=== PATIENT | male | born 1950 | race Caucasian/White ===

== ENCOUNTER 2017-01-18 19:52 | Inpatient (IN) | payer MEDICARE, MEDICAID ==
[~2017-01-18] VITALS: Ht 172.7 cm; Wt 86.2 kg
[2017-01-18] MEDS ORDERED: NITROGLYCERIN OINT 1GM/INCH UDPKT TD STA (22:38)
[2017-01-18] MEDS ORDERED: ASPIRIN 81MG TABLET PO STA (22:38)
[2017-01-18 23:07] LABS: BASOPHILS % 1.1 % (0.0-2.0); EOSINOPHILS % 3.2 % (0.0-5.0); HEMATOCRIT. 38.9 % (42.0-52.0); LYMPHOCYTES % 28.1 % (20.0-50.0); MEAN CORPUSCULAR HEMOGLOBIN 30.5 pg (28.0-32.0); MEAN CORPUSCULAR HGB CONC 33.5 g/dL (31.0-37.0); MEAN CORPUSCULAR VOLUME 90.9 fL (80.0-94.0); MEAN PLATELET VOLUME 8.9 fl (7.4-10.4); NEUTROPHILS % 54.6 % (40.0-76.0); PLATELET 155 x1000/uL (130-400); RED BLOOD CELL COUNT 4.28 mill/uL (4.7-6.1); RED CELL DISTRIBUTION WIDTH 13.2 % (11.6-14.6); WHITE BLOOD COUNT 5.3 x1000/uL (4.5-11.0)
[2017-01-18 23:20] LABS: ANION GAP 13; CALCIUM 8.3 mg/dL (8.5-10.1); CARBON DIOXIDE 27 mEq/L (21-32); CHLORIDE 107 mEq/L (98-107); INDEX HEMOLYSI 1 (1-3); INDEX ICTERIC 1 (1-4); INDEX LIPEMIC 1 (1-3); NT PRO B-TYPE NATRIURETIC PEP 37 pg/mL (5-125); TROPONIN I < 0.02 ng/mL (0.00-0.04); UREA NITROGEN BLOOD 25 mg/dL (7-21); eGFR > 60 mL/min (>60)
[2017-01-18] MEDS ORDERED: DIPHENHYDRAMINE 25MG CAPSULE PO ONE (23:30)
[2017-01-19] MEDS ORDERED: CLONIDINE 0.1MG TABLET PO PRN (00:15)
[2017-01-19] MEDS ORDERED: DOCUSATE SODIUM 100MG CAPSULE PO PRN (00:15)
[2017-01-19] MEDS ORDERED: ONDANSETRON HCL 4MG/2ML VIAL IV PRN (00:15)
[2017-01-19] MEDS ORDERED: ACETAMINOPHEN 325MG TABLET PO PRN (00:15)
[2017-01-19] MEDS ORDERED: IPRATROPIUM/ALBUTEROL 0.5-3(2.5)MG/3ML NEB INH PRN (00:15)
[2017-01-19] MEDS ORDERED: MAGNESIUM/ALUMINUM HYDROXIDE/SIMETHICONE 30ML UDC PO PRN (00:15)
[2017-01-19 00:27] LABS: CLARITY URINE CLEAR (CLEAR); COLOR URINE YELLOW (YELLOW); GLUCOSE URINE NEGATIVE (NEGATIVE); KETONES URINE NEGATIVE (NEGATIVE); LEUKOCYTE ESTERASE URINE NEGATIVE (NEGATIVE); NITRITE URINE NEGATIVE (NEGATIVE); OCCULT BLOOD URINE NEGATIVE (NEGATIVE); PROTEIN URINE NEGATIVE (NEGATIVE)
[2017-01-19 00:39] LABS: CHLORIDE 109 mEq/L (98-107); INDEX HEMOLYSI 1 (1-3); INDEX ICTERIC 1 (1-4); INDEX LIPEMIC 1 (1-3)
[2017-01-19 00:45] LABS: ANION GAP 10; CALCIUM 8.3 mg/dL (8.5-10.1); CARBON DIOXIDE 27 mEq/L (21-32); MAGNESIUM 2.2 mg/dL (1.8-2.4); UREA NITROGEN BLOOD 24 mg/dL (7-21); eGFR > 60 mL/min (>60)
[2017-01-19 00:47] LABS: *AMPHETAMINES SCREEN URINE NEGATIVE (NEGATIVE); *BARBITURATES SCREEN URINE NEGATIVE (NEGATIVE); *BENZODIAZEPINES SCREEN URINE NEGATIVE (NEGATIVE); *COCAINE SCREEN URINE NEGATIVE (NEGATIVE); CANNABINOID URINE SCREEN NEGATIVE (NEGATIVE); ECSTASY MDMA SCREEN URINE NEGATIVE (NEGATIVE); METHADONE URINE SCREEN NEGATIVE (NEGATIVE); OPIATES URINE SCREEN NEGATIVE (NEGATIVE); PHENCYCLIDINE URINE SCREEN NEGATIVE (NEGATIVE)
[2017-01-19] MEDS ORDERED: LORAZEPAM 1MG TABLET PO ONE (03:45)
[2017-01-19 07:02] LABS: CREATINE KINASE MB FRACTION 2.3 ng/mL (0.5-3.6); THYROID STIMULATING HORMONE 2.6 uIU/mL (0.36-3.74)
[2017-01-19 08:00] VITALS: BP 106/62
[2017-01-19 08:15] VITALS: BP 129/81
[2017-01-19] MEDS ORDERED: LORAZEPAM 1MG TABLET PO PRN (08:15)
[2017-01-19] MEDS: ENOXAPARIN 40MG/0.4ML SYR SUBCUT SCH (09:10)
[2017-01-19] MEDS: ASPIRIN 81MG EC TABLET PO SCH (09:10)
[2017-01-19] MEDS ORDERED: DONE5TAB33 PO (10:55)
[2017-01-19] MEDS ORDERED: MIRT15TA6 PO (10:56)
[2017-01-19 12:00] VITALS: BP 125/79
[2017-01-19] MEDS: LORAZEPAM 2MG/ML CPJ IV PRN ×2 (12:36→16:42)
[2017-01-19] MEDS ORDERED: MEMA10TA11 PO (15:44)
[2017-01-19 16:00] VITALS: BP 108/76
[2017-01-19 16:56] LABS: CREATINE KINASE MB FRACTION 2.4 ng/mL (0.5-3.6)
[2017-01-19 20:00] VITALS: BP 110/75
[2017-01-19] MEDS: ATORVASTATIN CALCIUM 10MG TABLET PO SCH (20:22)
[2017-01-20] VITALS: BP 107/66
[2017-01-20 04:00] VITALS: BP 109/65
[2017-01-20 05:42] LABS: BASOPHILS % 0.7 % (0.0-2.0); EOSINOPHILS % 2.4 % (0.0-5.0); HEMATOCRIT. 41.5 % (42.0-52.0); LYMPHOCYTES % 20.1 % (20.0-50.0); MEAN CORPUSCULAR HEMOGLOBIN 30.2 pg (28.0-32.0); MEAN CORPUSCULAR HGB CONC 33.6 g/dL (31.0-37.0); MEAN CORPUSCULAR VOLUME 89.8 fL (80.0-94.0); MONOCYTES % 11.2 % (2.0-8.0); NEUTROPHILS % 65.6 % (40.0-76.0); PLATELET 157 x1000/uL (130-400); RED BLOOD CELL COUNT 4.62 mill/uL (4.7-6.1); WHITE BLOOD COUNT 6.8 x1000/uL (4.5-11.0)
[2017-01-20 06:25] LABS: ANION GAP 12; CARBON DIOXIDE 28 mEq/L (21-32); CHLORIDE 104 mEq/L (98-107); INDEX HEMOLYSI 1 (1-3); INDEX ICTERIC 1 (1-4); INDEX LIPEMIC 1 (1-3); UREA NITROGEN BLOOD 17 mg/dL (7-21); eGFR > 60 mL/min (>60)
[2017-01-20 07:28] VITALS: BP 111/63
[2017-01-20] MEDS: ENOXAPARIN 40MG/0.4ML SYR SUBCUT SCH (09:10)
[2017-01-20] MEDS: ASPIRIN 81MG EC TABLET PO SCH (09:10)
[2017-01-20] MEDS: MEMANTINE HCL 10MG TABLET PO SCH ×2 (09:10→16:54)
[2017-01-20] MEDS: MIRTAZAPINE 15MG TABLET PO SCH (09:11)
[2017-01-20] MEDS: DONEPEZIL HCL 5MG TABLET PO SCH (09:11)
[2017-01-20] MEDS: LORAZEPAM 2MG/ML CPJ IV PRN ×2 (09:11→16:54)
[2017-01-20 11:56] VITALS: BP 108/65
[2017-01-20 16:00] VITALS: BP 106/65
[2017-01-20] MEDS: HALOPERIDOL LACTATE 5MG/ML VIAL IM PRN (18:00)
[2017-01-20 20:00] VITALS: BP 103/65
[2017-01-20] MEDS: ATORVASTATIN CALCIUM 10MG TABLET PO SCH (20:50)
[2017-01-21] VITALS: BP 95/66
[2017-01-21 04:00] VITALS: BP 103/61
[2017-01-21 07:40] VITALS: BP 100/63
[2017-01-21] MEDS: DONEPEZIL HCL 5MG TABLET PO SCH (09:35)
[2017-01-21] MEDS: ENOXAPARIN 40MG/0.4ML SYR SUBCUT SCH (09:35)
[2017-01-21] MEDS: MIRTAZAPINE 15MG TABLET PO SCH (09:35)
[2017-01-21] MEDS: ASPIRIN 81MG EC TABLET PO SCH (09:36)
[2017-01-21] MEDS: MEMANTINE HCL 10MG TABLET PO SCH ×2 (09:37→16:41)
[2017-01-21 12:00] VITALS: BP 97/61
[2017-01-21] MEDS: LORAZEPAM 2MG/ML CPJ IV PRN ×2 (14:10→20:25)
[2017-01-21] MEDS: HALOPERIDOL LACTATE 5MG/ML VIAL IM PRN ×2 (15:28→23:57)
[2017-01-21 15:53] VITALS: BP 101/62
[2017-01-21 20:00] VITALS: BP 115/71
[2017-01-21] MEDS: ATORVASTATIN CALCIUM 10MG TABLET PO SCH (20:25)
[2017-01-22] VITALS: BP 101/64
[2017-01-22] MEDS: LORAZEPAM 2MG/ML CPJ IV PRN (02:13)
[2017-01-22 04:00] VITALS: BP 93/59
[2017-01-22 05:43] LABS: BASOPHILS % 0.7 % (0.0-2.0); EOSINOPHILS % 1.6 % (0.0-5.0); HEMATOCRIT. 37.3 % (42.0-52.0); HEMOGLOBIN. 12.9 g/dL (14.0-18.0); LYMPHOCYTES % 20.4 % (20.0-50.0); MEAN CORPUSCULAR HEMOGLOBIN 30.7 pg (28.0-32.0); MEAN CORPUSCULAR HGB CONC 34.5 g/dL (31.0-37.0); MEAN CORPUSCULAR VOLUME 88.9 fL (80.0-94.0); MEAN PLATELET VOLUME 8.8 fl (7.4-10.4); MONOCYTES % 10.7 % (2.0-8.0); NEUTROPHILS % 66.6 % (40.0-76.0); PLATELET 160 x1000/uL (130-400); RED CELL DISTRIBUTION WIDTH 13.1 % (11.6-14.6)
[2017-01-22 06:08] LABS: ANION GAP 10; CALCIUM 8.4 mg/dL (8.5-10.1); CARBON DIOXIDE 30 mEq/L (21-32); CHLORIDE 105 mEq/L (98-107); INDEX HEMOLYSI 1 (1-3); INDEX ICTERIC 1 (1-4); INDEX LIPEMIC 1 (1-3); UREA NITROGEN BLOOD 17 mg/dL (7-21); eGFR > 60 mL/min (>60)
[2017-01-22 07:50] VITALS: BP 89/56
[2017-01-22] MEDS: MIRTAZAPINE 15MG TABLET PO SCH (08:54)
[2017-01-22] MEDS: ENOXAPARIN 40MG/0.4ML SYR SUBCUT SCH (08:54)
[2017-01-22] MEDS: DONEPEZIL HCL 5MG TABLET PO SCH (08:54)
[2017-01-22] MEDS: MEMANTINE HCL 10MG TABLET PO SCH (08:54)
[2017-01-22] MEDS: ASPIRIN 81MG EC TABLET PO SCH (08:54)
[2017-01-22 11:54] VITALS: BP 89/59
[2017-01-22 12:51] VITALS: BP 100/79
[2017-01-22 15:30] VITALS: BP 109/64
== END 2017-01-22 15:50 | DRG 313 ==
LOC: ER 22:19 → 8WST 01-19 00:07
PROVIDERS: ADMIT Internal Medicine; ATTEND Internal Medicine
DX: R07.9 Chest pain, unspecified (principal); D64.9 Anemia, unspecified; E78.5 Hyperlipidemia, unspecified; F02.80 Dementia in other diseases classified elsewhere, unspecified severity, without behavioral disturbance, psychotic disturbance, mood disturbance, and anxiety; G30.9 Alzheimer's disease, unspecified; I10 Essential (primary) hypertension; Z87.891 Personal history of nicotine dependence; Z88.0 Allergy status to penicillin; Z78.1 Physical restraint status
CPT/HCPCS: 36415; 70551; 71010; 80048; 80061; 80305; 81003; 82550; 82553; 83735; 83880; 84443; 84484; 85025; 85379; 93005; 93306; 93970; 97162; 99285; A6261; J1630; J1650; J2060; Q0163